=== PATIENT | male | born 1970 | race Caucasian/White ===

== ENCOUNTER 2021-03-09 11:12 | Outpatient (CLI) | payer OTHER ==
[~2021-03-09] VITALS: Ht 177.8 cm; Wt 210.0 kg
[2021-03-09] MEDS ORDERED: EPINEPHrine INJECTION 1 MG/ML AMP IM PRN (11:45)
[2021-03-09] MEDS ORDERED: ACETAMINOPHEN 500 MG TAB (TYLENOL) PO PRN (11:45)
[2021-03-09] MEDS ORDERED: ONDANSETRON 4 MG/2 ML (SDV) Z0FRAN IV PRN (11:45)
[2021-03-09] MEDS ORDERED: diphenhydrAMINE 50 MG/ML INJ (BENADRYL) IV PRN (11:45)
[2021-03-09] MEDS ORDERED: BAMLANIVIMAB 700 MG/ETESEVIMAB 1,400 MG IN NS IV ONE ×3 (11:45)
[2021-03-09 12:28] VITALS: BP 121/86
[2021-03-09 13:20] VITALS: BP 128/82
[2021-03-09 13:24] VITALS: BP 125/79
== END 2021-03-09 13:22 | disposition home or self-care (01) ==
LOC: INFUSION 11:12
PROVIDERS: ATTEND Nurse Practitioner Family
DX: U07.1 COVID-19 (principal)